=== PATIENT | male | born 1990 | race Caucasian/White ===

== ENCOUNTER → 2018-10-27 13:57 | Outpatient (CLI) | payer BC ==
--- NOTE | ~2018-10-27 | ST ---
PATIENT:ASHWINI HERNANDEZ MEDICAL RECORD: [id number] SEX: M LOCATION:[facility] ORDER #: ADMISSION DATE: 10/27/18 AGE OF PATIENT: 28 REFERRING PHYSICIAN: INTERPRETING PHYSICIAN: SOWMYA YODER MD DATE OF SERVICE: 10/27/2018 INDICATIONS: Chest pain, shortness of breath. He was exercised on standard Mark protocol for 10 minutes achieving 100% max target heart rate response with no EKG changes, no dysrhythmias, no anginal symptomatology. OVERALL IMPRESSION: Negative for inducible ischemia at adequate cardiac workload. TRANSINT:[id number] Voice Confirmation ID: [id number] DOCUMENT ID: [id number] SOWMYA YODER MD CC: [id number] DICTATION DATE: 10/27/18 1607 PRINTING EQUIPMENT MECHANIC: 10/28/18 0653 [facility] CLI 10/27/[address] [id number]
--- NOTE | ~2018-10-27 | EC ---
PATIENT:ASHWINI HERNANDEZ DATE OF SERVICE: 10/27/18 SEX: M MEDICAL RECORD: [id number] DATE OF : [birth year] LOCATION:[facility] AGE OF PATIENT: 28 ADMISSION DATE: 10/27/18 REFERRING PHYSICIAN: INTERPRETING PHYSICIAN: SOWMYA RIVERO MD ECHOCARDIOGRAM REPORT ECHO CHARGES 4 ECHO COMPLETE Date: 10/27/18 CLINICAL DIAGNOSIS: FIGUEROA/ABNORMAL EKG/HTN ECHOCARDIOGRAPHIC MEASUREMENTS (adult normal given) AC root (d.<3.7cm) 3.7 cm LV Septum d (<1.2 cm> 1.5 cm Valve Excursion 2.3 cm LV Septum (systole) 1.9 cm Left Atria (s.<4.0cm> 3.9 cm LVPW d(<1.2cm) 1.1 cm RV (d.<2.3cm) 2.5 cm LVPW (sytole) 1.9 cm LV diastole(<5.6CM) 5.9 cm MV E-F(>70mm/sec) cm LV systole 4.0 cm LVOT Diameter 2.5 cm MV exc.(>10mm) cm Est.ejection fraction (50-75%) % DOPPLER: LVIT cm/sec A 32.0 cm/sec E 62.0 cm/sec LA cm/sec RVSP 29.1 mmHg LVOT 85.0 cm/sec AOP1/2T m/s Asc. Ao 104 cm/sec RVOT 67.0 cm/sec RA cm/sec PA 88.0 cm/sec AV Gradient Peak 4.3 mmHg AV Mean 2.3 mmHg AV Area 3.6 cm MV Gradient Peak 2.0 mmHg MV Mean 0.80 mmHg MV Area cm COMMENTS: OP - HC Electronics System Mechanic: Uriah MARQUESOE Track Fitter: 1 Dr. Rivero TAPE# PACS Pericardial Effusion N DATE OF SERVICE: 10/27/2018 ECHOCARDIOGRAM DATE OF SERVICE: 10/27/2018 FINDINGS: 1. Left ventricular chamber size is within normal limits. Left ventricular systolic function is normal. Overall ejection fraction estimated at 55%. 2. Left atrium, right atrium, and right ventricular chamber sizes are within ECHOCARDIOGRAM REPORT [id number] ASHWINI HERNANDEZ normal limits. 3. Valvular structures have normal structure and motion. 4. Doppler interrogation reveals trace mitral regurgitation, trace tricuspid regurgitation, no other valvular insufficiency or stenosis. Pulmonary systolic pressure is normal estimated at 29 mmHg. 5. No evidence of pericardial effusion or left ventricular thrombus. TRANSINT:[id number] Voice Confirmation ID: [id number] DOCUMENT ID: [id number] SOWMYA RIVERO MD CC: [id number] DICTATION DATE: 10/27/18 1617 GAMBLING BROKER: 10/27/18 1633 [facility] [address] [id number]
== END | disposition home or self-care (01) ==
LOC: D.HCCARDIO 13:57
PROVIDERS: ATTEND Internal Medicine Interventional Cardiology
DX: R06.09 Other forms of dyspnea (principal)